=== PATIENT | female | born 1965 | race Caucasian/White ===

== ENCOUNTER 2023-11-06 19:00 | Emergency (ER) | payer OTHER, SELFPAY ==
[2023-11-06 19:04] VITALS: BP 118/74
[2023-11-06 19:51] LABS: % Basophils 0.7 % (0-2); % Eosinophils 1.6 % (0-6); % Immature Granulocytes 0.2 % (0-0.5); % Lymphocytes 39.9 % (20.5-51.1); % Monocytes 12.6 % (1.7-9.3); Absolute Eosinophils 0.1 10^3/uL (0-0.7); Absolute Lymphocytes 2.2 10^3/uL (1.2-3.4); Absolute Monocytes 0.7 10^3/uL (0.1-0.6); Absolute Neutrophils 2.5 10^3/uL (1.4-6.5); Hematocrit 36.1 % (37.0-47.0); Hemoglobin 13.4 g/dL (12.0-16.0); Mean Corp Hgb Conc. 37.1 g/dL (33.0-37.0); Mean Corpuscular Hgb 33.4 pg (27.0-31.0); Mean Platelet Volume 10.3 fL (7.4-10.4); Nucleated Red Blood Cells % 0 %; Platelet Count 197 10^3/uL (130-400); Red Blood Cell Count 4.01 10^6/uL (4.20-5.40); Red Cell Dist. Width 12.5 % (11.5-14.5); White Blood Cell Count 5.5 10^3/uL (4.8-10.8)
[2023-11-06 20:15] LABS: ALT (SGPT) 70 U/L (0-35); AST (SGOT) 49 U/L (14-36); Albumin 4.3 g/dl (3.5-5.0); Alkaline Phosphatase 73 U/L (38-126); Blood Urea Nitrogen 10 mg/dl (7-17); Calcium 9.3 mg/dl (8.4-10.2); Carbon Dioxide 25 mmol/L (22-30); Chloride 102 mmol/L (98-107); Glucose 92 mg/dl (70-99); Sodium 137 mmol/L (135-145); Total Bilirubin 0.8 mg/dl (0.2-1.3); Total Protein 6.8 g/dl (6.3-8.2); eGFR > 60.00
[2023-11-06 20:17] LABS: Troponin I 0.014 ng/ml
--- NOTE | 2023-11-06 21:04 | ED.GENMED ---
History of Present Illness
General
Chief Complaint: Dizziness
Source: patient and family ([id number])
Exam Limitations: other (Language barrier)
Time Seen by Provider: 11/06/23 20:28
History of Present Illness
History of Present Illness:
This is a 58 year old female that comes in with c/o headache, lightheadedness, and tremors. [id number] states that the past 3 days she feels like her legs feel like cotton or tingling. States that she has been lightheaded and seeing dark spots.
States that her arms have had tremors so much that she was unable to sign a paper today. States that she has had Tremors before and has been given Medication for Parkinson's. States that yesterday she felt that the right sided of her head was
tingling. States that she has a headache in the Temporal areas. States that she has pain in the abd with nausea after taking her pills, Constipation and chest pain. Denies any fever, chills, SOB, vomiting, diarrhea, urinary burning .
Past History
Past History
ED Past Medical History: CVA (Small), HTN, Hypercholesterolemia, Psychiatric (Depression) and Other (Constipation, Gastritis)
ED Past Surgical History: Cardiac (Open heart for valve replacement), and Other (Leg veins)
Social History
Tobacco: Non-smoker
Alcohol: None
Personal:
Living: with family
Review of Systems
Review of Systems
All Other Systems: ROS reviewed and negative except as documented in HPI and ROS
Constitutional: Reports no symptoms; Denies fever or chills
EENT: Reports no symptoms
Respiratory: Denies cough or trouble breathing
Cardiac: Reports chest pain
ABD/GI: Reports abdominal pain, nausea and constipated; Denies vomiting or diarrhea
: Reports no symptoms; Denies dysuria, frequency or urgency
Musculoskeletal: Reports no symptoms
Skin: Reports no symptoms
Neurological: Reports headache and other (Lightheaded)
Psychiatric: Reports no symptoms
Phy Exam
General Physical Exam
General Presentation: well appearing and no apparent distress
General age: appears stated age
General Skin: warm and dry
General Habitus: normal
General Mental: alert
General Hydration: dry mucous membranes
ENT Exam
ENT Exam: TM's normal, pharynx normal and neck supple
Eye Exam
Eye Exam: EOMI
Cardiovascular Exam
Cardiovascular Exam: regular rate/rhythm, no edema, normal peripheral pulses and other (Valve click noted)
Pulmonary Exam
Pulmonary Exam: lungs clear, no respiratory distress, no rales, chest non tender, no crackles, no rhonchi, no wheezing and no cough
Gastrointestinal Exam
Gastrointestinal Exam: normal bowel sounds, soft, no organomegaly, no pulsatile mass, non distended and tender (Right upper abd tenderness with palpation and right lower)
NIH Stroke Score
Level of Consciousness: 0 - Alert
LOC questions: 0-Answers both correctly
LOC Commands: 0-Performs both correctly
Best Gaze: 0-Normal
Visual Daniels: 0=Normal, no visual loss
Facial palsy: 0=Normal, symmetrical
Motor - Right Arm: 0=No drift 10 seconds
Motor - Left Arm: 0=No drift 10 seconds
Motor - Right Le-No drift 5 seconds
Motor - Left Le-No drift 5 seconds
Limb Ataxia: 0-Absent
Sensation: 1-Mild loss (Goes from lower on right leg to higher on left leg)
Best Language: 0-No aphasia
Dysarthria: 0-Normal
Extinction and Inattention: 0-No abnormality
Total Score:: 1
Musculoskeletal Exam
Musculoskeletal Exam: full ROM, no edema and other (Hand grasp and push pulls equal)
Skin Exam
Skin Exam: normal color, warm/dry, no rash and no petechia
Psychiatric Exam
Psychiatric Exam: normal mood/affect
Course
Orders/Labs/Results
Orders:
Orders
11/06/23 19:16
EKG [Electrocardiogram (*1)] Urgent
Reason for Study: Vertigo / Dizzy
EKG- Treatment ONCE
11/06/23 19:43
C-Reactive Protein Urgent
Comment: ADD ON
Complete Blood Count/With Diff Urgent
Comprehensive Metabolic Panel Urgent
Erythrocyte Sed Rate Urgent
Comment: ADD ON
Lipase Urgent
Comment: ADD ON
Troponin I Urgent
11/06/23 20:50
Add On- LAB Urgent
Tests Added?: Sed rate, CRP, Lipase
CT Head W/o Iv Contrast Urgent
Comment:
Reason For Exam: Headache, Dizziness
0.9% Sodium Chloride 1000 ml [Nss] 1,000 ml IV BOLUS
Acetaminophen [Tylenol] 1,000 mg PO NOW STA
US Abdomen Complete/Upper Urgent
Comment:
Reason For Exam: right sided abd tenderness.
11/06/23 23:34
Prothrombin Time Urgent
11/06/23 23:51
Troponin I Routine
Abnormal Lab Results
11/06/23 11/06/23
19:43 23:34
RBC 4.01 L 10^6/uL
(4.20-5.40)
Hct 36.1 L %
(37.0-47.0)
MCH 33.4 H pg
(27.0-31.0)
MCHC 37.1 H g/dL
(33.0-37.0)
Absolute Monos (auto) 0.7 H 10^3/uL
(0.1-0.6)
Monocytes % 12.6 H %
(1.7-9.3)
PT 32.8 H Sec
(11.4-14.6)
AST 49 H U/L
(14-36)
ALT 70 H U/L
(0-35)
11/06/23 19:43
11/06/23 19:43
AST/ALT elevation. troponin 0.014
CRP normal at <5.0, LIpase normal at 130, Sed rate normal at 9. PT 32.5, INR 3.21, Second Troponin <0.012
Vital Signs
Initial and Last Documented VS:
Initial Vital Signs
Temp Pulse Resp BP Pulse Ox
98.1 F 76 16 118/74 97
11/06/23 19:04 11/06/23 19:04 11/06/23 19:04 11/06/23 19:04 11/06/23 19:04
Last Documented Vital Signs
Temp Pulse Resp BP Pulse Ox
98.1 F 76 16 118/74 97
11/06/23 19:04 11/06/23 19:04 11/06/23 19:04 11/06/23 19:04 11/06/23 19:04
MDM/Problems Addressed
Differential Diagnosis Includes:
Gallbladder disease. Parkinson's
MDM/Problems Addressed:
This is a 58 year old female that comes in with multiple complaints. [id number] states that she has had a headache for three days, Tremors, her legs feel like cotton and the right sided of her face yesterday was tingling.
Will check labs. CT head, Medicate for headache pain, IV fluids.
Back into see patient and [id number]. Explained that her CT of the head is normal along with her US. Patient states that she feels better after the Tylenol but family states that she never got the IV fluids. Will wait for second Troponin and if
normal will discharge patient home and have patient follow up with the Neurologist.
Chronic conditions affecting care:
Parkinson's
Acute Exacerbation and/or Progression of Chronic Illness:
Essential tremors in past possible Parkinson's
*Radiology
Radiology exam reviewed: radiology read reviewed (CT head-No acute intracranial abnormality noted. US abd/pelvis-Unremarkable. )
*Pulse Oximetry
Patient hypoxic: no
*EKG
Interpreted by ED Provider?: Yes
Heart Rate: 67
Rate: normal
Rhythm: sinus
[place]: left axis deviation
Interval: normal interval
QRS Pattern: normal QRS
Ischemia: no ischemia
*Steeplechase Jockey Interpretation
Rate: Steeplechase Jockey- N/A
*Critical Care Note
Total Time (30-74mins, 75-104mins- exclusive of procedures): Not Applicable
ED Attending Note
-
Portions of this chart may have been created with voice recognition software.� Occasional wrong word or��sound alike� substitutions may have occurred due to the inherent limitations of voice recognition software.
Discharge Plan
Departure
Patient Disposition: Home (Routine Discharge)
Date of Disposition: 11/07/23
Time of Disposition: 00:48
Patient with high blood pressure during this ER visit?: No
Condition: Good
Covid-19: Not Applicable
Discharge Problem:
Essential tremor, Abdominal pain
Instructions: Essential Tremor, Abdominal Pain, Adult ED
Prescriptions:
No Action
amantadine HCl 100 mg Capsule
100 mg PO BID
warfarin 5 mg Tablet
PO DAILY
carbidopa-levodopa 10-100 mg tablet
1 tab PO QID
docusate sodium [Colace] 100 mg Capsule
100 mg PO DAILY
hydroxyzine pamoate 25 mg capsule
25 mg PO TIDPRN PRN (Reason: anxiety)
escitalopram oxalate 10 mg tablet
10 mg PO DAILY
rosuvastatin [Crestor] 10 mg Tablet
10 mg PO DAILY
rasagiline 0.5 mg Tablet
0.5 mg PO DAILY
Referrals:
Maria Elena Davenport NP [Family Provider] - Follow up in 2-3 days
Activity Restrictions/Additional Instructions:
As discussed, patient blood work shows that her liver enzymes are slightly elevated. This can be due to medication uses. Her Inflammatory markers are normal along with both Troponin which are specific for the heart. Her CT of the head is normal
along with the abdomen ultrasound. Please follow up with the family doctor and a Neurologist for further evaluation. You may take Tylenol 1000mg every 6 hours for headache pain or leg pain. You Coumadin level is to high. Please hold off on taking
your Coumadin tomorrow and follow up with the family doctor for repeat INR. IF YOU HAVE ANY OTHER CONCERNS PLEASE RETURN TO THE EMERGENCY ROOM.
Interventions
Interventions:
*Risk Screen - Suicide Last Done: 11/06/23 19:04
*General Assessment Last Done: 11/06/23 20:35
*Neglect/Abuse Screening Last Done: 11/06/23 20:35
*ED COVID-19 Vaccine History Last Done: 11/06/23 20:35
ED- Neurological Assessment Last Done: 11/06/23 20:35
ED Swallowing Screen Last Done: 11/06/23 20:35
Discharge Date and Time
Print Language: TELUGU
[2023-11-06 21:08] LABS: Lipase 130 U/L (23-300)
[2023-11-06 21:14] LABS: C-Reactive Protein < 5.00 mg/L (0.0-10.00)
[2023-11-06 21:20] LABS: Erythrocyte Sed Rate 9 mm/hour (0-20)
--- NOTE | 2023-11-06 21:39 | PHANOTE ---
med rec note- patient currently in [employer] sound, Citizen Of [place]? speak waiting family to come back to room to translate. undated med list based on bottles in room and patient not in ecw but does have pharamcy records. hopeful patient comes back before 10pm
[2023-11-06] MEDS: TYLENOL 1000 MG PO (22:00)
[2023-11-06 23:54] LABS: INR 3.21; PT 32.8 Sec (11.4-14.6)
[2023-11-07 00:44] LABS: Troponin I 0.015 ng/ml
[2023-11-07] MEDS: NSS 1000 IV (01:12)
[2023-11-07 01:56] VITALS: BP 114/74
== END 2023-11-07 01:58 | disposition home or self-care (01) ==
LOC: EMR 19:00
PROVIDERS: Clinical Nurse Specialist Family Health; Student in an Organized Health Care Education/Training Program; EMERGENCY PHYSICIAN Student in an Organized Health Care Education/Training Program; FAMILY PHYSICIAN Nurse Practitioner Adult Health
DX: G25.0 Essential tremor (principal); R10.9 Unspecified abdominal pain; G20.A1 Parkinson's disease without dyskinesia, without mention of fluctuations
CPT/HCPCS: 99285; 96360; 96361; 70450; 76700; 80053; 83690; 84484; 85025; 85610; 85652; 86140; 93005

== ENCOUNTER 2024-10-11 21:11 | Emergency (ER) | payer OTHER, SELFPAY ==
[2024-10-11 21:28] VITALS: BP 100/75
[2024-10-11 22:02] VITALS: BP 121/72
[2024-10-11 22:21] LABS: % Basophils 0.4 % (0-2); % Eosinophils 1.5 % (0-6); % Immature Granulocytes 0.1 % (0-0.5); % Lymphocytes 30.3 % (20.5-51.1); % Monocytes 9.8 % (1.7-9.3); % Neutrophils 57.9 % (42.2-75.2); Absolute Eosinophils 0.1 10^3/uL (0-0.7); Absolute Lymphocytes 2.3 10^3/uL (1.2-3.4); Absolute Monocytes 0.7 10^3/uL (0.1-0.6); Absolute Neutrophils 4.4 10^3/uL (1.4-6.5); Hematocrit 39.3 % (37.0-47.0); Hemoglobin 13.9 g/dL (12.0-16.0); Mean Corp Hgb Conc. 35.4 g/dL (33.0-37.0); Mean Corpuscular Hgb 33.7 pg (27.0-31.0); Mean Corpuscular Volume 95.4 fL (81.0-99.0); Mean Platelet Volume 10.7 fL (7.4-10.4); Nucleated Red Blood Cells % 0 %; Platelet Count 187 10^3/uL (130-400); Red Blood Cell Count 4.12 10^6/uL (4.20-5.40); White Blood Cell Count 7.5 10^3/uL (4.8-10.8)
[2024-10-11 22:30] LABS: INR 2.13; PT 23.9 Sec (11.4-14.6)
[2024-10-11 22:31] LABS: APTT 37.9 Sec (23.4-35.0)
[2024-10-11 22:43] LABS: NT-proBNP 111 pg/ml; Troponin I 0.018 ng/ml
[2024-10-11 22:45] LABS: ALT (SGPT) 42 U/L (0-35); AST (SGOT) 35 U/L (14-36); Albumin 4.2 g/dl (3.5-5.0); Alkaline Phosphatase 69 U/L (38-126); Blood Urea Nitrogen 15 mg/dl (7-17); Calcium 9.2 mg/dl (8.4-10.2); Carbon Dioxide 27 mmol/L (22-30); Chloride 108 mmol/L (98-107); Glucose 103 mg/dl (70-99); Potassium 4.4 mmol/L (3.5-5.1); Sodium 140 mmol/L (135-145); Total Bilirubin 0.7 mg/dl (0.2-1.3); Total Protein 7.1 g/dl (6.3-8.2); eGFR > 60.00
--- NOTE | 2024-10-11 23:10 | ED.GENMED ---
History of Present Illness
General
Chief Complaint: Chest Pain
Source: patient, family (Brother who is accompanying and interpreting for patient. Her primary language is Guamanian and Uzbek.) and previous hospital records (1 previous ED visit October 2023. Multiple complaints including headache,
lightheadedness, tremor, constipation and chest pain. Unremarkable ED evaluation.)
Exam Limitations: none
Time Seen by Provider: 10/11/24 22:05
Nursing documentation reviewed up to this point in time: agreed with except (Patient is not scheduled for 'bypass surgery' she is scheduled for cardiac catheterization mid October.)
History of Present Illness
History of Present Illness:
This is a 59-year-old woman whose primary language is [place]ian and [place] who presents with several month history of intermittent chest pain as well as dyspnea on exertion. She has history of aortic valve replacement a number of years ago and
follows with cardiology at [facility]. Maintained on Coumadin. Currently being worked up for exertional chest pain and dyspnea and reportedly had an abnormal stress test a month or 2 ago and thus is scheduled for cardiac catheterization November 04.
She presents tonight due to increase in her exertional chest pain, increase in dyspnea on exertion. Chest pain is generally left sided, worse with walking, improves with rest, occasionally radiates to her back, occasionally accompanied with dyspnea
on exertion. No cough, no diaphoresis, no nausea or vomiting. She does admit to occasional palpitations but no lightheadedness.
She notes somewhat chronic mild swelling of right lower extremity compared to left. She denies leg pain.
Admits to perhaps 6 pound weight gain over the past month or 2.
No history of CAD, no history of CHF, no prior history of thromboembolism.
No recent travel.
Past History
Past History
ED Past Medical History: CVA (Small), HTN, Hypercholesterolemia, Valvular disease (Mechanical aortic valve replacement-chronically maintained on Coumadin), Psychiatric (Depression), Other (Constipation, Gastritis) and Other (Parkinson's disease
versus familial tremor)
ED Past Surgical History: Cardiac (Aortic valve replacement), and Other (Leg veins)
Social History
Tobacco: Non-smoker
Alcohol: None
Personal:
Living: with family
Employment: Not employed
Family History
Family History: Unable to obtain
Phy Exam
Physical Exam
Physical Exam:
GENERAL: 59-year-old woman appears her stated age, awake and alert, pleasant, appears in no acute distress. Brother is accompanying and is interpreting for the patient.
EYE: anicteric
NECK: Supple, nontender, no meningismus, no significant adenopathy. No JVD.
ENT: posterior pharynx is clear, oral mucosa is moist. No rhinorrhea.
CARDIAC: Regular rate and rhythm. Mechanical click. No murmur.
LUNGS: Clear breath sounds bilaterally, no acute respiratory distress, no wheezes/rales/rhonchi
ABDOMEN: Soft, nondistended, minimal tenderness epigastric region with deep palpation only, no r/g, no cvat. normoactive BS.
NEUROLOGICAL: Alert and oriented x3, no focal neuro deficits.
SKIN: Warm and dry, normal color, skin intact. No rash.
MUSCULOSKELETAL: No clubbing or cyanosis nor edema. Peripheral pulses are full and equal b/l. No palpable tenderness.
PSYCH: Normal and appropriate interaction.
Scores
Heart Score for Chest Pain Patients
STEMI patient?: No
History: Slightly or Non-Suspicious
ECG: Normal
Age: >45 - <65 years
Risk Factors: 1 or 2 Risk Factors
Troponin: </= Normal Limit
Heart Score for Chest Pain Patients: 2
Heart Score Risk: 2.5% MACE over next 6 weeks
Course
Orders/Labs/Results
Orders:
Orders
10/11/24 21:15
ECG [Electrocardiogram (*1)] Urgent
Reason for Study: Chest Pain
EKG- Treatment ONCE
10/11/24 21:31
Cardiac Monitoring- Treatment ONCE
IV Insert/Care/Rem.- Treatment PRN
O2 Therapy [RESP] Urgent
Titrate/Wean O2 to maintain O2 sat greater than (%): 90
Special Instructions: Maintain sats >/=90%
Pulse Ox/spot Check [RESP] Urgent
Quantity: 1
Special Instructions: ON ROOM AIR
10/11/24 22:07
Add On- LAB Urgent
Tests Added?: BNP
10/11/24 22:08
CR Chest - 2 Views Urgent
Comment:
Reason For Exam: CP, SOB
10/11/24 22:11
Complete Blood Count/With Diff Urgent
Comprehensive Metabolic Panel Urgent
D-Dimer Urgent
Comment: ADD ON
NT-proBNP Urgent
Comment: ADD ON
Protime/PTT Urgent
Troponin I Urgent
10/12/24 00:34
Troponin I Urgent
Abnormal Lab Results
10/11/24
22:11
RBC 4.12 L 10^6/uL
(4.20-5.40)
MCH 33.7 H pg
(27.0-31.0)
MPV 10.7 H fL
(7.4-10.4)
Absolute Monos (auto) 0.7 H 10^3/uL
(0.1-0.6)
Monocytes % 9.8 H %
(1.7-9.3)
PT 23.9 H Sec
(11.4-14.6)
APTT 37.9 H Sec
(23.4-35.0)
Chloride 108 H mmol/L
(98-107)
Glucose 103 H mg/dl
(70-99)
ALT 42 H U/L
(0-35)
10/11/24 22:11
10/11/24 22:11
Vital Signs
Initial and Last Documented VS:
Initial Vital Signs
Temp Pulse Resp BP Pulse Ox
98 F 65 18 100/75 97
10/11/24 21:28 10/11/24 21:28 10/11/24 21:28 10/11/24 21:28 10/11/24 21:28
Last Documented Vital Signs
Temp Pulse Resp BP Pulse Ox
98 F 69 12 121/72 97
10/11/24 21:28 10/11/24 22:30 10/11/24 22:30 10/11/24 22:02 10/11/24 23:11
MDM/Problems Addressed
Differential Diagnosis Includes:
Concern for ACS, GERD, CHF, pneumonia, valvular disorder, musculoskeletal chest pain. Patient chronically maintained on Coumadin, no recent adjustment thus PE is less likely but also a consideration.
EKG is unremarkable and unchanged from previous October 2023.
Overall patient appears comfortable.
Vital signs within normal limits.
Will check labs including troponin, PT/INR, BNP. Check chest x-ray.
Will consider D-dimer.
Chronic conditions affecting care: HTN and Other (Valvular disorder/prior aortic valve replacement)
*Radiology
Radiology exam reviewed: radiology read reviewed
*Pulse Oximetry
SaO2: 97
Oxygen Mode of Delivery: Room air
Patient hypoxic: no
*EKG
Interpreted by ED Provider?: Yes
Interpretation: normal
Comparison EKG: no changes (Unchanged from previous October 2023)
Rate: normal
Rhythm: sinus
[place]: normal axis
Interval: normal interval
QRS Pattern: normal QRS
Ischemia: no ischemia
*Outside Solar Sales Consultant Interpretation
Rate: normal
Interpretation: normal
Rhythm: sinus
*Critical Care Note
Total Time (30-74mins, 75-104mins- exclusive of procedures): Not Applicable
Update Note
Update Note:
01:20
Troponin remains within normal limits. D-dimer is negative.
Patient continues to appear comfortable.
Will discharge to home with recommendations for prompt follow-up with her classified advertising clerk from [place].
ED Attending Note
-
Portions of this chart may have been created with voice recognition software.� Occasional wrong word or��sound alike� substitutions may have occurred due to the inherent limitations of voice recognition software.
Discharge Plan
Departure
Patient Disposition: Home (Routine Discharge)
Date of Disposition: 10/12/24
Time of Disposition: 01:19
Patient with high blood pressure during this ER visit?: No
Condition: Good
Discharge Problem:
Nonspecific chest pain
Instructions: Chest Pain NON-[facility] Otc Clerk Follow Up
Prescriptions:
No Action
amantadine HCl 100 mg Capsule
100 mg PO BID
warfarin 5 mg Tablet
PO DAILY
carbidopa-levodopa 10-100 mg tablet
1 tab PO QID
docusate sodium [Colace] 100 mg Capsule
100 mg PO DAILY
hydroxyzine pamoate 25 mg capsule
25 mg PO TIDPRN PRN (Reason: anxiety)
escitalopram oxalate 10 mg tablet
10 mg PO DAILY
rosuvastatin [Crestor] 10 mg Tablet
10 mg PO DAILY
rasagiline 0.5 mg Tablet
0.5 mg PO DAILY
Referrals:
Maria Elena Davenport NP [Family Provider, Family Practice] - Call in 1-3 days for appt
Interventions
Interventions:
*Risk Screen - Suicide Last Done: 10/11/24 21:28
*Neglect/Abuse Screening Last Done: 10/11/24 21:28
ED- Cardiac Assessment Last Done: 10/11/24 22:20
Discharge Date and Time
Print Language: EAST TIM[place]
[2024-10-11 23:34] LABS: D-Dimer < 0.27 ug/mlFEU (0.00-0.50)
[2024-10-12 00:37] VITALS: BP 101/65
[2024-10-12 01:00] VITALS: BP 113/68
[2024-10-12 01:09] LABS: Troponin I 0.023 ng/ml
== END 2024-10-12 01:37 | disposition home or self-care (01) ==
LOC: EMR 21:11
PROVIDERS: Student in an Organized Health Care Education/Training Program; EMERGENCY PHYSICIAN Emergency Medicine; FAMILY PHYSICIAN Nurse Practitioner Adult Health
DX: R07.89 Other chest pain (principal); E78.00 Pure hypercholesterolemia, unspecified; I38 Endocarditis, valve unspecified; F32.A Depression, unspecified; I10 Essential (primary) hypertension; Z79.01 Long term (current) use of anticoagulants; Z86.73 Personal history of transient ischemic attack (TIA), and cerebral infarction without residual deficits; Z87.19 Personal history of other diseases of the digestive system; Z95.2 Presence of prosthetic heart valve
CPT/HCPCS: 99283; 71046; 80053; 83880; 84484; 85025; 85379; 85610; 85730; 93005

== ENCOUNTER 2025-04-08 17:29 | Emergency (ER) | payer OTHER, SELFPAY ==
[2025-04-08 17:42] VITALS: BP 124/68
[2025-04-08 18:09] LABS: Hematocrit 41.4 % (37.0-47.0); Hemoglobin 14.0 g/dL (12.0-16.0); Mean Corp Hgb Conc. 33.8 g/dL (33.0-37.0); Mean Corpuscular Volume 95.8 fL (81.0-99.0); Nucleated Red Blood Cells % 0 %; Platelet Count 206 10^3/uL (130-400); Red Cell Dist. Width 12.7 % (11.5-14.5)
[2025-04-08 18:17] LABS: INR 2.14; PT 24.1 Sec (11.4-14.6)
[2025-04-08 18:32] LABS: ALT (SGPT) 16 U/L (0-35); AST (SGOT) 29 U/L (14-36); Albumin 4.3 g/dl (3.5-5.0); Alkaline Phosphatase 64 U/L (38-126); Blood Urea Nitrogen 13 mg/dl (7-17); Calcium 9.2 mg/dl (8.4-10.2); Carbon Dioxide 25 mmol/L (22-30); Chloride 105 mmol/L (98-107); Glucose 92 mg/dl (70-99); Potassium 4.2 mmol/L (3.5-5.1); Sodium 136 mmol/L (135-145); Total Protein 7.4 g/dl (6.3-8.2); Troponin I 0.033 ng/ml; eGFR > 60.00
[2025-04-09 00:30] VITALS: BP 117/69
--- NOTE | 2025-04-09 00:45 | ED.GENMED ---
History of Present Illness
General
Chief Complaint: Chest Pain
Time Seen by Provider: 04/09/25 00:24
History of Present Illness
History of Present Illness:
Patient is a 59-year-old with history of aortic valve replacement on Coumadin presenting to the emergency room with palpitations. Patient states that intermittently her heart rate jumps to the 170s. She does feel fluttering in her chest. No chest
pain. No difficulty breathing. No lightheadedness or dizziness. Denies any caffeine use. No recent illnesses. No known thyroid problems. She has been compliant with her Coumadin.
Past History
Past History
ED Past Medical History: CVA (Small), HTN, Hypercholesterolemia, Valvular disease (Mechanical aortic valve replacement-chronically maintained on Coumadin), Psychiatric (Depression), Other (Constipation, Gastritis) and Other (Parkinson's disease
versus familial tremor)
ED Past Surgical History: Cardiac (Aortic valve replacement), and Other (Leg veins)
Social History
Tobacco: Non-smoker
Alcohol: None
Personal:
Living: with family
Employment: Not employed
Family History
Family History: Unable to obtain
Phy Exam
Physical Exam
Physical Exam:
GENERAL: in no acute distress
HEENT: normocephalic, extraocular movements intact, moist oral mucosa
NECK: normal inspection
RESPIRATORY: no respiratory distress, clear to auscultation bilaterally
CARDIOVASCULAR: regular rate and rhythm
ABDOMEN/: soft, non-distended, non-tender to palpation, no rebound or guarding
EXTREMITIES: non-tender, no edema/swelling
NEUROLOGIC: awake and alert, moves all extremities
SKIN: warm
Scores
Heart Score for Chest Pain Patients
STEMI patient?: Not applicable
Course
Orders/Labs/Results
Orders:
Orders
04/08/25 17:30
EKG [Electrocardiogram (*1)] Urgent
Reason for Study: Chest Pain
EKG- Treatment ONCE
04/08/25 17:48
Complete Blood Count/With Diff Urgent
Comprehensive Metabolic Panel Urgent
Prothrombin Time Urgent
TSH Reflex To Free T4 Urgent
Troponin I Urgent
04/09/25 00:48
Magnesium Urgent
Troponin I Urgent
Abnormal Lab Results
04/08/25
17:48
MCH 32.4 H pg
(27.0-31.0)
MPV 10.8 H fL
(7.4-10.4)
Absolute Monos (auto) 0.7 H 10^3/uL
(0.1-0.6)
Monocytes % 10.1 H %
(1.7-9.3)
PT 24.1 H Sec
(11.4-14.6)
04/08/25 17:48
04/08/25 17:48
Vital Signs
Initial and Last Documented VS:
Initial Vital Signs
Temp Pulse Resp BP Pulse Ox
98.3 F 78 18 124/68 96
04/08/25 17:42 04/08/25 17:42 04/08/25 17:42 04/08/25 17:42 04/08/25 17:42
Last Documented Vital Signs
Temp Pulse Resp BP Pulse Ox
98.3 F 78 18 124/68 98
04/08/25 17:42 04/08/25 17:42 04/08/25 17:42 04/08/25 17:42 04/09/25 00:48
MDM/Problems Addressed
Differential Diagnosis Includes:
Patient is a 59-year-old woman with history of aortic valve replacement on Coumadin presenting to the emergency department with intermittent palpitations. On arrival vitals were unremarkable. Exam is reassuring. During my evaluation in the room
patient remained in normal sinus rhythm in the 60s. Differential is broad but consists of arrhythmia versus metabolic derangement versus thyroid problem. Considered PE though unlikely given intermittent episodes and patient is on Coumadin. No
recent illnesses. Patient is not dehydrated. Blood work obtained prior to my evaluation is unremarkable. Troponin x 2 normal. Will check magnesium.
*Pulse Oximetry
SaO2: 98
Oxygen Mode of Delivery: Room air
Patient hypoxic: no
*Critical Care Note
Total Time (30-74mins, 75-104mins- exclusive of procedures): Not Applicable
Update Note
Update Note:
Magnesium normal. Patient remained in normal sinus rhythm. Will discharge at this time. Will have patient follow-up with [facility].
ED Attending Note
-
Portions of this chart may have been created with voice recognition software.� Occasional wrong word or��sound alike� substitutions may have occurred due to the inherent limitations of voice recognition software.
Discharge Plan
Departure
Patient Disposition: Home (Routine Discharge)
Date of Disposition: 04/09/25
Time of Disposition: 01:24
Patient with high blood pressure during this ER visit?: No
Discharge Problem:
Palpitation
Instructions: Palpitations - ED (DC)
Prescriptions:
No Action
amantadine HCl 100 mg Capsule
100 mg PO BID
warfarin 5 mg Tablet
PO DAILY
carbidopa-levodopa 10-100 mg tablet
1 tab PO QID
docusate sodium [Colace] 100 mg Capsule
100 mg PO DAILY
hydroxyzine pamoate 25 mg capsule
25 mg PO TIDPRN PRN (Reason: anxiety)
escitalopram oxalate 10 mg tablet
10 mg PO DAILY
rosuvastatin [Crestor] 10 mg Tablet
10 mg PO DAILY
rasagiline 0.5 mg Tablet
0.5 mg PO DAILY
Referrals:
UNKNOWN - PT NOT,INTERVIEWE [Family Provider]
Activity Restrictions/Additional Instructions:
Thank You for choosing [facility].
It was a pleasure meeting you and taking part in your care.
You were seen in the Emergency Department today for . Palpitation while you were here we performed blood work, which was reassuring.
We would like for you to follow up with your certified registered nurse anesthetist for further evaluation. You will benefit from a Holter monitor. If you experience fever, worsening of your symptoms, or develop any other new or concerning symptoms, please return to the
Emergency Department immediately.
Please see the attached sheet for additional information.
Interventions
Interventions:
*General Assessment Last Done: 04/08/25 17:44
*Neglect/Abuse Screening Last Done: 04/08/25 17:44
*ED COVID-19 Vaccine History Last Done: 04/08/25 17:44
*ED Influenza Vaccine History Last Done: 04/08/25 17:44
[facility] Fall Risk Assessment Tool Last Done: 04/09/25 00:18
*Risk Screen - Suicide (C-SSRS) Last Done: 04/08/25 17:44
ED- Cardiac Assessment Last Done: 04/09/25 00:34
Discharge Date and Time
Print Language: HEBREW
[2025-04-09 01:01] VITALS: BP 108/58
[2025-04-09 01:08] LABS: Magnesium 1.9 mg/dl (1.6-2.3)
[2025-04-09 01:22] LABS: Troponin I 0.030 ng/ml
== END 2025-04-09 02:24 | disposition home or self-care (01) ==
LOC: EMR 17:29
PROVIDERS: Emergency Medicine; EMERGENCY PHYSICIAN Student in an Organized Health Care Education/Training Program
DX: R00.2 Palpitations (principal); E78.00 Pure hypercholesterolemia, unspecified; I10 Essential (primary) hypertension; Z86.73 Personal history of transient ischemic attack (TIA), and cerebral infarction without residual deficits; Z95.2 Presence of prosthetic heart valve; Z79.01 Long term (current) use of anticoagulants
CPT/HCPCS: 99284; 80053; 83735; 84443; 84484; 85025; 85610; 93005